=== PATIENT | female | born 1950 | race Caucasian/White ===

== ENCOUNTER 2016-11-26 05:03 | Emergency (ER) | payer MEDICARE ==
[~2016-11-26] VITALS: Ht 162.6 cm; Wt 118.8 kg
[~2016-11-26 05:03] MED LIST: ATOR40TA70 PO; ESCI20TA45 PO; ESCT10T PO; FAMO20TA5 PO; HCTZ12.5T PO; HYDR-3720 PO; LEVO175T5 PO; LVT.15T PO; NFNEB10T PO; OMG1KC PO; ROSU10TA12 PO; VALS1TAB76 PO; VLS80C PO
[2016-11-26] MEDS ORDERED: BENZ100C23 (05:14)
[2016-11-26] MEDS ORDERED: ESCI10TA55 (05:14)
[2016-11-26] MEDS ORDERED: CIPR500T4 (05:14)
[2016-11-26] MEDS ORDERED: LEVO150T6 (05:14)
[2016-11-26] MEDS ORDERED: METO-272 (05:14)
[2016-11-26] MEDS ORDERED: ATOR10TA66 (05:14)
[2016-11-26] MEDS ORDERED: LORA10CA PO (05:16)
[2016-11-26] MEDS ORDERED: D-ME245.3 PO (05:16)
--- NOTE | 2016-11-26 05:29 | ED Cough/URI ---
General Chief Complaint: Cough/Cold/Flu Symptoms Stated Complaint: COLD,SINUS,COUGHING,PAIN IN HEAD,POSS ALLERGIC RXN Nursing Triage Note: patient reports coughing since tuesday, states tuesday went to dr and got medication for cough, antibiotic and steroid shot. reports today developed a headache Source: patient, RN notes reviewed, spouse Exam Limitations: no limitations History of Present Illness Time seen by provider: 05:12 Initial Comments Started coughing on Tuesday. Saw PCP on Tuesday and was given Cipro, steroid shot, and cough medication. Not any better @ this time and has been coughing so hard now has a headache. Also her skin has become red and is burning this AM. States she has never had anything like this before. Timing/Duration: other (started Tuesday) Severity/Quality: severe, dry cough Prior Episodes/Possible Cause: no prior episodes Modifying Factors: Worse With Coughing Associated Symptoms: cough, headache (secondary to coughing) Allergies and Home Medications Allergies Coded Allergies: codeine (Unverified Allergy, Intermediate, LIGHT HEADED/NEAR SYNCOPE, ) Home Medications Atorvastatin Calcium 10 Mg Tablet, #90 (Reported) Benzonatate 100 Mg Capsule, #30 (Reported) Ciprofloxacin HCl 500 Mg Tablet, #14 (Reported) D-Methorphan/PE/Acetaminophen 245.5 Ml Liquid, 245.5 ML PO, (Reported) Escitalopram Oxalate 10 Mg Tablet, #90 (Reported) Levothyroxine Sodium 150 Mcg Tablet, #90 (Reported) Loratadine 10 Mg Capsule, 10 MG PO, (Reported) Metoprolol Succinate 50 Mg Tab.er.24h, #90 (Reported) Constitutional: see HPI Respiratory: see HPI, cough : No Skin: see HPI, rash Psychiatric/Neurological: See HPI, Headache All Other Systems Reviewed Negative Unless Noted: Yes (Negative excepted noted.) Past Mjvgbkk-Dxlvji-Gujtfs Hx Patient Social History Alcohol Use: Denies Use Recreational Drug Use: No Smoking Status: Never a Smoker Recent Foreign Travel: No Contact w/Someone Who Travel: No Recent Infectious Disease Expo: No Recent Hopitalizations: No Immunizations Up To Date Date of Pneumonia Vaccine: Apr 10, 2012 Date of Influenza Vaccine: Apr 10, 2011 Surgeries HX Surgeries: Yes (L TKR, ULNER NERVE REATTATCHMENT LEFT, ) Respiratory Hx Respiratory Disorders: No (SOME SINUS PROBLEMS/COUGH) Cardiovascular Hx Cardiac Disorders: No Neurological Hx Neurological Disorders: No Reproductive System Hx Reproductive Disorders: No Genitourinary Hx Genitourinary Disorders: No Gastrointestinal Hx Gastrointestinal Disorders: No Musculoskeletal Hx Musculoskeletal Disorders: No Endocrine Hx Endocrine Disorders: Yes HEENT HX ENT Disorders: Yes Psychosocial Hx Psychiatric Problems: No Blood Transfusions Hx Blood Disorders: No Physical Exam Vital Signs Vital Sign - Last 12Hours 11/26/16 05:10 Temp 96.0 Pulse 87 Resp 18 B/P (MAP) 177/106 Pulse Ox 98 O2 Delivery Room Air Capillary Refill : Less Than 3 Seconds General Appearance: WD/WN, mild distress, obese HEENT: normal ENT inspection, TMs normal, pharynx normal Neck: normal inspection Respiratory: no respiratory distress, crackles, rhonchi Cardiovascular: regular rate, rhythm Neurologic/Psychiatric: no motor/sensory deficits, alert, oriented x 3, depressed affect Skin: warm/dry, rash Progress/Results/Core Measures Results/Orders Lab Results Laboratory Tests Test 11/26/16 05:20 Range/Units White Blood Count 7.0 4.3-11.0 10^3/uL Red Blood Count 5.03 4.35-5.85 10^6/uL Hemoglobin 14.6 11.5-16.0 G/DL Hematocrit 44 35-52 % Mean Corpuscular Volume 88 80-99 FL Mean Corpuscular Hemoglobin 29 25-34 PG Mean Corpuscular Hemoglobin Concent 33 32-36 G/DL Red Cell Distribution Width 12.6 10.0-14.5 % Platelet Count 233 130-400 10^3/uL Mean Platelet Volume 9.2 7.4-10.4 FL Neutrophils (%) (Auto) 60 42-75 % Lymphocytes (%) (Auto) 28 12-44 % Monocytes (%) (Auto) 10 0-12 % Eosinophils (%) (Auto) 2 0-10 % Basophils (%) (Auto) 0 0-10 % Neutrophils # (Auto) 4.2 1.8-7.8 X 10^3 Lymphocytes # (Auto) 2.0 1.0-4.0 X 10^3 Monocytes # (Auto) 0.7 0.0-1.0 X 10^3 Eosinophils # (Auto) 0.1 0.0-0.3 10^3/uL Basophils # (Auto) 0.0 0.0-0.1 10^3/uL Sodium Level 139 135-145 MMOL/L Potassium Level 3.3 L 3.6-5.0 MMOL/L Chloride Level 102 98-107 MMOL/L Carbon Dioxide Level 24 21-32 MMOL/L Anion Gap 13 5-14 MMOL/L Blood Urea Nitrogen 15 7-18 MG/DL Creatinine 1.08 0.60-1.30 MG/DL Estimat Glomerular Filtration Rate 51 BUN/Creatinine Ratio 14 Glucose Level 122 H 70-105 MG/DL Calcium Level 9.4 8.5-10.1 MG/DL Magnesium Level 2.2 1.8-2.4 MG/DL Total Bilirubin 0.4 0.1-1.0 MG/DL Aspartate Amino Transf (AST/SGOT) 40 H 5-34 U/L Alanine Aminotransferase (ALT/SGPT) 28 0-55 U/L Alkaline Phosphatase 117 40-136 U/L B-Type Natriuretic Peptide 104.0 H <100.0 PG/ML Total Protein 7.5 6.4-8.2 G/DL Albumin 4.3 3.2-4.5 G/DL My Orders Orders - EASTON BATRES DO Saline Lock/Iv-Start (11/26/16 05:18) BNP (11/26/16 05:18) Cbc With Automated Diff (11/26/16 05:18) Comprehensive Metabolic Panel (11/26/16 05:18) Magnesium (11/26/16 05:18) Chest 1 View, Ap/Pa Only (11/26/16 05:18) Dexamethasone Pf Injection (Decadron Pf (11/26/16 05:30) Albuterol/Ipra Inhalation Soln (Duoneb I (11/26/16 05:30) Svn Sm Volume Nebulizer Rt-Rfs (11/26/16 05:21) Ns Iv 1000 Ml (Sodium Chloride 0.9%) (11/26/16 05:30) Medications Given in ED Current Medications Medications Dose Ordered Sig/Ghulam Route Start Time Stop Time Status Last Admin Dose Admin Albuterol/ Ipratropium 3 ml ONCE ONCE INH 11/26/16 05:30 11/26/16 05:31 DC 11/26/16 05:39 3 ML Dexamethasone Sodium Phosphate 10 mg ONCE ONCE IV 11/26/16 05:30 11/26/16 05:31 DC 11/26/16 05:30 10 MG Vital Signs/I&O Vital Sign - Last 12Hours 11/26/16 11/26/16 11/26/16 05:10 05:10 05:40 Temp 96.0 Pulse 87 Resp 18 B/P (MAP) 177/106 Pulse Ox 98 98 O2 Delivery Room Air Blood Pressure Mean: 129 Departure Impression Impression: Primary Impression: Asthmatic bronchitis Disposition: 01 HOME, SELF-CARE Condition: Stable Departure-Patient Inst. Decision time for Depature: 06:29 Referrals: REBEKAH LEVI MD (PCP/Family) Primary Care Physician Patient Instructions: Acute Bronchitis, Adult (DC) Scripts Albuterol Sulfate (PROAIR HFA) 1 Puff Puff 2 PUFF IH Q4H Y for COUGH/SOA, #1 INHALER 0 Refills 1 PUFF = 90 MCG Prov: EASTON BATRES DO 11/26/16 Hydrocodone/Chlorphen P-Stirex (Tussionex Pennkinetic Susp) 115 Ml Sonia.er.12h 5 ML PO Q12H Y for COUGH/PAIN, #120 ML 0 Refills Prov: EASTON BATRES DO 11/26/16 Methylprednisolone (Medrol) 4 Mg Tab.ds.pk 4 MG PO UD, #1 PKG 0 Refills Prov: EASTON BATRES DO 11/26/16 EASTON BATRES DO November 26, 2016 05:29
[2016-11-26] MEDS ORDERED: NS IV 1000 ML 1,000 ML IV SCH (05:30)
[2016-11-26] MEDS ORDERED: RT-ALBUTEROL/IPRATROPIUM 3 ML (DUONEB) VIAL INH ONE (05:30)
[2016-11-26] MEDS ORDERED: DEXAMETHASONE PF 10 MG/ML (DECADRON) VIAL IV ONE (05:30)
[2016-11-26 05:32] LABS: BASOPHILS % (AUTO) 0 % (0-10); EOSINOPHILS # (AUTO) 0.1 10^3/uL (0.0-0.3); EOSINOPHILS % (AUTO) 2 % (0-10); LYMPHOCYTES % (AUTO) 28 % (12-44); MEAN CORPUSCULAR HEMOGLOBIN 29 PG (25-34); MEAN CORPUSCULAR HGB CONC 33 G/DL (32-36); MEAN CORPUSCULAR VOLUME 88 FL (80-99); MEAN PLATELET VOLUME 9.2 FL (7.4-10.4); MONOCYTES # (AUTO) 0.7 X 10^3 (0.0-1.0); MONOCYTES % (AUTO) 10 % (0-12); NEUTROPHILS # (AUTO) 4.2 X 10^3 (1.8-7.8); NEUTROPHILS % (AUTO) 60 % (42-75); PLATELET COUNT 233 10^3/uL (130-400); RED BLOOD COUNT 5.03 10^6/uL (4.35-5.85); RED CELL DISTRIBUTION WIDTH 12.6 % (10.0-14.5)
[2016-11-26 06:10] LABS: ALBUMIN 4.3 G/DL (3.2-4.5); BILIRUBIN,TOTAL 0.4 MG/DL (0.1-1.0); CALCIUM 9.4 MG/DL (8.5-10.1); CREATININE SERUM 1.08 MG/DL (0.60-1.30); MAGNESIUM 2.2 MG/DL (1.8-2.4); POTASSIUM 3.3 MMOL/L (3.6-5.0); TOTAL PROTEIN 7.5 G/DL (6.4-8.2)
--- NOTE | 2016-11-26 06:15 | Diagnostic Imaging Report ---
INDICATION: Cough, congestion, chest wall pain. TECHNIQUE: Single view chest 5:34 AM. CORRELATION STUDY: 07/10/2012 FINDINGS: Given limited depth of inspiration, heart size, mediastinum, and vasculature within normal limits. The lungs are clear with no consolidating infiltrate. There is no significant effusion or pneumothorax. IMPRESSION: 1. Stable negative portable chest. Dictated by: Dictated on workstation # [id number]
[2016-11-26] MEDS ORDERED: fentaNYL INJECTION 100 MCG/2 ML AMP IM ONE (06:30)
[2016-11-26] MEDS ORDERED: RT-ALBUINH IH (06:31)
[2016-11-26] MEDS ORDERED: HYDR115S2 PO (06:31)
[2016-11-26] MEDS ORDERED: METH4TAB PO (06:31)
[2016-11-26 06:48] VITALS: BP 168/96
[2016-11-27] MEDS ORDERED: ATROVENT (09:19)
[2016-11-27] MEDS ORDERED: HYDR-756 PO (09:20)
== END 2016-11-26 06:47 | disposition home or self-care (01) ==
LOC: EDUNIT# 05:03 → ER 05:05
DX: J45.901 Unspecified asthma with (acute) exacerbation (principal)
CPT/HCPCS: 36415; 71010; 80053; 83735; 83880; 85025; 94640; 96361; 96374; 96375

== ENCOUNTER 2016-11-27 07:23 | Emergency (ER) | payer MEDICARE ==
[~2016-11-27] VITALS: Ht 162.6 cm; Wt 113.4 kg
[~2016-11-27 07:23] MED LIST changes: +ATOR10TA66; +BENZ100C23; +CIPR500T4; +D-ME245.3 PO; +ESCI10TA55; +HYDR115S2 PO; +LEVO150T6; +LORA10CA PO; +METH4TAB PO; +METO-272; +RT-ALBUINH IH
[2016-11-27] MEDS ORDERED: RT-ALBUTEROL/IPRATROPIUM 3 ML (DUONEB) VIAL ONE (07:55)
[2016-11-27] MEDS ORDERED: HYDROcodone/APAP 10 MG/325 MG (LORTAB) TAB PO ONE (09:15)
[2016-11-27] MEDS ORDERED: methylPREDNISolone 125 MG (Solu-MEDROL) VIAL IM ONE (09:15)
--- NOTE | 2016-11-27 09:16 | ED Cough/URI ---
General Chief Complaint: Cough/Cold/Flu Symptoms Stated Complaint: BURNING EVERYWHERE, SHARP PAIN IN HEAD Nursing Triage Note: PT WAS SEEN IN ED YESTERDAY, PT STATES COUGH WORSENING, HAS HORRIBLE THURMAN,BURNING ALL OVER. Source: patient, family Exam Limitations: no limitations History of Present Illness Time seen by provider: 09:11 Initial Comments The patient's a 66-year-old white female previously known to me. She was here yesterday with the same complaint. That is to say uncontrolled cough. She reports that she began to have symptoms about Tuesday. By Tuesday she was seen by the nurse practitioner at her provider's office. She was given antibiotics. By evening she was coughing incessantly and felt as if her brain was slamming against her skull. She was seen here yesterday and started on steroids and albuterol inhalation. She is continued to cough harshly. Her cough has not been ameliorated by [id number] cough meds. She was given a Medrol Dosepak. And has not completed the first day's dose. There is been a clear water nasal drainage and a thick or posterior drainage. She also reports hoarseness. There has been a little or no phlegm Timing/Duration: week, getting worse Severity/Quality: severe, dry cough Prior Episodes/Possible Cause: no prior episodes Associated Symptoms: headache, other (sweats) Allergies and Home Medications Allergies Coded Allergies: codeine (Unverified Allergy, Intermediate, LIGHT HEADED/NEAR SYNCOPE, ) Home Medications Albuterol Sulfate 1 Puff Puff, 2 PUFF IH Q4H PRN for COUGH/SOA, #1 Ref 0 1 PUFF = 90 MCG Prescribed by: EASTON BATRES on 11/26/16 0631 Atorvastatin Calcium 10 Mg Tablet, #90 (Reported) Benzonatate 100 Mg Capsule, #30 (Reported) Ciprofloxacin HCl 500 Mg Tablet, #14 (Reported) D-Methorphan/PE/Acetaminophen 245.5 Ml Liquid, 245.5 ML PO, (Reported) Escitalopram Oxalate 10 Mg Tablet, #90 (Reported) Hydrocodone/Chlorphen P-Stirex 115 Ml Sonia.er.12h, 5 ML PO Q12H PRN for COUGH/ PAIN, #120 Ref 0 Prescribed by: EASTON BATRES on 11/26/16 0631 Levothyroxine Sodium 150 Mcg Tablet, #90 (Reported) Loratadine 10 Mg Capsule, 10 MG PO, (Reported) Methylprednisolone 4 Mg Tab.ds.pk, 4 MG PO UD, #1 Ref 0 Prescribed by: EASTON BATRES on 11/26/16 0631 Metoprolol Succinate 50 Mg Tab.er.24h, #90 (Reported) Constitutional: see HPI EENTM: nose congestion, other (nasal and postnasal drips) Respiratory: other (dyspnea with cough) Cardiovascular: no symptoms reported Gastrointestinal: no symptoms reported Genitourinary: no symptoms reported Musculoskeletal: no symptoms reported Skin: no symptoms reported Past Csoabue-Ewzsjo-Lvxhay Hx Patient Social History Alcohol Use: Denies Use Recreational Drug Use: No Smoking Status: Never a Smoker Recent Foreign Travel: No Contact w/Someone Who Travel: No Recent Infectious Disease Expo: No Recent Hopitalizations: No Immunizations Up To Date Date of Pneumonia Vaccine: Apr 10, 2012 Date of Influenza Vaccine: Apr 10, 2011 Surgeries HX Surgeries: Yes (L TKR, ULNER NERVE REATTATCHMENT LEFT, ) Respiratory Hx Respiratory Disorders: No (SOME SINUS PROBLEMS/COUGH) Cardiovascular Hx Cardiac Disorders: No Neurological Hx Neurological Disorders: No Reproductive System Hx Reproductive Disorders: No Genitourinary Hx Genitourinary Disorders: No Gastrointestinal Hx Gastrointestinal Disorders: No Musculoskeletal Hx Musculoskeletal Disorders: No Endocrine Hx Endocrine Disorders: Yes HEENT HX ENT Disorders: Yes Psychosocial Hx Psychiatric Problems: No Blood Transfusions Hx Blood Disorders: No Physical Exam Vital Signs Vital Sign - Last 12Hours 11/27/16 07:25 Temp 98.2 Pulse 102 Resp 18 B/P (MAP) 198/105 Pulse Ox 95 O2 Delivery Room Air Capillary Refill : Less Than 3 Seconds General Appearance: moderate distress Eyes: Bilateral Eye Normal Inspection HEENT: normal ENT inspection Neck: full range of motion Respiratory: chest non-tender, lungs clear, normal breath sounds, no respiratory distress, no accessory muscle use, respiratory distress, other ( harsh barking cough) Cardiovascular: normal peripheral pulses, regular rate, rhythm, no edema, no gallop, no JVD, no murmur Gastrointestinal: normal bowel sounds, non tender, soft, no organomegaly, no pulsatile mass Extremities: normal range of motion, non-tender, normal inspection, no pedal edema, no calf tenderness, normal capillary refill, pelvis stable 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, no motor/sensory deficits, alert, normal mood/affect, oriented x 3 Progress/Results/Core Measures Results/Orders My Orders Orders - VINI HANCOCK MD Albuterol/Ipra Inhalation Soln (Duoneb I (11/27/16 07:55) Methylprednisolone Sod Succ (Solu-Medrol (11/27/16 09:15) Hydrocodone/Apap 10/325 Tablet (Lortab 1 (11/27/16 09:15) Medications Given in ED Current Medications Medications Dose Ordered Sig/Ghulam Route Start Time Stop Time Status Last Admin Dose Admin Albuterol/ Ipratropium 3 ml STK-MED ONCE .ROUTE 11/27/16 07:55 11/27/16 08:00 DC 11/27/16 08:05 3 ML Vital Signs/I&O Vital Sign - Last 12Hours 11/27/16 07:25 Temp 98.2 Pulse 102 Resp 18 B/P (MAP) 198/105 Pulse Ox 95 O2 Delivery Room Air Blood Pressure Mean: 136 Departure Impression Impression: Primary Impression: cyclic coughing Disposition: 01 HOME, SELF-CARE Condition: Stable/Unchanged Departure-Patient Inst. Decision time for Depature: 09:16 Referrals: REBEKAH LEVI MD (PCP/Family) Primary Care Physician Patient Instructions: Cough, Adult (DC) Add. Discharge Instructions: All discharge instructions reviewed with patient and/or family. Voiced understanding. Use throat lozenges as needed. Complete your Medrol Dosepak Add Lortabs for control of cough Use Atrovent nasal spray for control of nasal congestion and drip Scripts Hydrocodone/Acetaminophen ([place] 7.5-325 Tablet) 1 Each Tablet 1 EACH PO every 4 hours Y for cough, #30 TAB Prov: VINI HANCOCK MD 11/27/16 [Atrovent nasal] No Conflict Check 1 twice a day Y for nasal drip, #1 Prov: VINI HANCOCK MD 11/27/16 VINI HANCOCK MD November 27, 2016 09:16
[2016-11-27] MEDS ORDERED: ATROVENT (09:19)
[2016-11-27] MEDS ORDERED: HYDR-756 PO (09:20)
[2016-11-27 09:29] VITALS: BP 158/88
== END 2016-11-27 09:29 | disposition home or self-care (01) ==
LOC: EDUNIT# 07:23 → ER 07:24
DX: R05 Cough (principal); R09.81 Nasal congestion; Z79.899 Other long term (current) drug therapy
CPT/HCPCS: 96372; 99282

== ENCOUNTER 2016-11-30 06:13 | Emergency (ER) | payer MEDICARE ==
[~2016-11-30] VITALS: Ht 162.6 cm; Wt 116.1 kg
[~2016-11-30 06:13] MED LIST changes: +ATROVENT; +HYDR-756 PO
[2016-11-30 06:32] VITALS: BP 172/103
--- NOTE | 2016-11-30 07:52 | ED Cardiac General ---
History of Present Illness General Chief Complaint: Cardiac/General Problems Stated Complaint: HIGH BLOOD PRESSURE Nursing Triage Note: C/O HIGH BLOOD PRESSURE THIS AM. Source: patient Exam Limitations: no limitations History of Present Illness Time seen by provider: 06:45 Initial Comments here with report of high blood pressure and cough. She has been treated for her cough over the last 4 days and is currently on Medrol Dosepak. She states she just does not feel right and side. Her is concerned she is having a heart attack. Also concerned because her blood pressure was very high this morning in the range of 170s over 100. She is on blood pressure medicine. She did take her medicine dose this morning after noticing her blood pressure problems. Denies specific chest pain just states feels weird and side. Denies nausea or vomiting. Does have cough and congestion that have been persistent. She has 2 previous visits in the last 4 days for the same with relation to her complaint of cough. She states her cough is better while taking the steroids. Timing/Duration: changing over time, 4-5 days Severity: moderate Location: central Activities at Onset: none Prior CP/Workup: cardiac cath, echocardiography NTG SL CHIEF DEPUTY CLERK/BAILIFF: No ASA po CHIEF DEPUTY CLERK/BAILIFF: No Associated Systoms: No Chest Pain, Cough, No Fever/Chills, No Nausea/Vomiting, Shortness of Air, No Weakness Allergies and Home Medications Allergies Coded Allergies: codeine (Unverified Allergy, Intermediate, LIGHT HEADED/NEAR SYNCOPE, ) Home Medications Albuterol Sulfate 1 Puff Puff, 2 PUFF IH Q4H PRN for COUGH/SOA, #1 Ref 0 1 PUFF = 90 MCG Prescribed by: EASTON BATRES on 11/26/16 0631 Atorvastatin Calcium 10 Mg Tablet, #90 (Reported) Benzonatate 100 Mg Capsule, #30 (Reported) Ciprofloxacin HCl 500 Mg Tablet, #14 (Reported) D-Methorphan/PE/Acetaminophen 245.5 Ml Liquid, 245.5 ML PO, (Reported) Escitalopram Oxalate 10 Mg Tablet, #90 (Reported) Hydrocodone/Acetaminophen 1 Each Tablet, 1 EACH PO every 4 hours PRN for cough, #30 Prescribed by: VINI HANCOCK on 11/27/16 0920 Hydrocodone/Chlorphen P-Stirex 115 Ml Sonia.er.12h, 5 ML PO Q12H PRN for COUGH/ PAIN, #120 Ref 0 Prescribed by: EASTON BATRES on 11/26/16 0631 Levothyroxine Sodium 150 Mcg Tablet, #90 (Reported) Loratadine 10 Mg Capsule, 10 MG PO, (Reported) Methylprednisolone 4 Mg Tab.ds.pk, 4 MG PO UD, #1 Ref 0 Prescribed by: AESTON BATRES on 11/26/16 0631 Metoprolol Succinate 50 Mg Tab.er.24h, #90 (Reported) [Atrovent nasal] , 1 twice a day PRN for nasal drip, #1 Prescribed by: VINI HANCOCK on 11/27/16 0919 Review of Systems Constitutional: see HPI, No chills, No fever EENTM: Nose Congestion, Throat Pain Respiratory: Cough, Shortness of Air Cardiovascular: Denies Chest Pain, Denies Edema, Lightheadedness Gastrointestinal: Denies Nausea, Denies Vomiting Genitourinary: No Symptoms Reported Musculoskeletal: no symptoms reported Skin: no symptoms reported All Other Systems Reviewed Negative Unless Noted: Yes Past Yzlicei-Zldkhz-Dhoejr Hx Patient Social History Alcohol Use: Denies Use Recreational Drug Use: No Smoking Status: Never a Smoker Recent Foreign Travel: No Contact w/Someone Who Travel: No Recent Infectious Disease Expo: No Recent Hopitalizations: No Immunizations Up To Date Date of Pneumonia Vaccine: Apr 10, 2012 Date of Influenza Vaccine: Apr 10, 2011 Seasonal Allergies Seasonal Allergies: Yes Surgeries HX Surgeries: Yes (L TKR, ULNER NERVE REATTATCHMENT LEFT, ) Respiratory Hx Respiratory Disorders: No (SOME SINUS PROBLEMS/COUGH) Cardiovascular Hx Cardiac Disorders: No Cardiac Disorders: High Cholesterol, Hypertension Neurological Hx Neurological Disorders: No Reproductive System Hx Reproductive Disorders: No Genitourinary Hx Genitourinary Disorders: No Gastrointestinal Hx Gastrointestinal Disorders: No Musculoskeletal Hx Musculoskeletal Disorders: No Endocrine Hx Endocrine Disorders: Yes Endocrine Disorders: Hypothyroidsim HEENT HX ENT Disorders: Yes Psychosocial Hx Psychiatric Problems: No Blood Transfusions Hx Blood Disorders: No Reviewed Nursing Assessment Reviewed/Agree w Nursing PMH: Yes Family Medical History Significant Family History: No Pertinent Family Hx Physical Exam Vital Signs Vital Sign - Last 12Hours 11/30/16 06:27 Temp 98.2 Pulse 88 Resp 18 B/P (MAP) 183/118 Pulse Ox 98 O2 Delivery Room Air Capillary Refill : Less Than 3 Seconds General Appearance: WD/WN, Anxious HEENT: PERRL/EOMI, Pharynx Normal Neck: Non Tender, Supple Respiratory: Lungs Clear, Normal Breath Sounds, Other (course cough) Cardiovascular: Regular Rate, Rhythm, No Murmur, Normal Peripheral Pulses Gastrointestinal: Non Tender, Soft Extremity: Normal Range of Motion, Non Tender Neurologic/Psychiatric: Alert, Oriented x3 Skin: Normal Color, Warm/Dry Progress/Results/Core Measures Results/Orders Lab Results Laboratory Tests Test 11/30/16 07:44 Range/Units White Blood Count 9.1 4.3-11.0 10^3/uL Red Blood Count 5.21 4.35-5.85 10^6/uL Hemoglobin 15.3 11.5-16.0 G/DL Hematocrit 45 35-52 % Mean Corpuscular Volume 86 80-99 FL Mean Corpuscular Hemoglobin 29 25-34 PG Mean Corpuscular Hemoglobin Concent 34 32-36 G/DL Red Cell Distribution Width 12.3 10.0-14.5 % Platelet Count 258 130-400 10^3/uL Mean Platelet Volume 8.9 7.4-10.4 FL Neutrophils (%) (Auto) 61 42-75 % Lymphocytes (%) (Auto) 32 12-44 % Monocytes (%) (Auto) 7 0-12 % Eosinophils (%) (Auto) 0 0-10 % Basophils (%) (Auto) 0 0-10 % Neutrophils # (Auto) 5.6 1.8-7.8 X 10^3 Lymphocytes # (Auto) 3.0 1.0-4.0 X 10^3 Monocytes # (Auto) 0.6 0.0-1.0 X 10^3 Eosinophils # (Auto) 0.0 0.0-0.3 10^3/uL Basophils # (Auto) 0.0 0.0-0.1 10^3/uL Sodium Level 140 135-145 MMOL/L Potassium Level 3.5 L 3.6-5.0 MMOL/L Chloride Level 101 98-107 MMOL/L Carbon Dioxide Level 29 21-32 MMOL/L Anion Gap 10 5-14 MMOL/L Blood Urea Nitrogen 18 7-18 MG/DL Creatinine 1.05 0.60-1.30 MG/DL Estimat Glomerular Filtration Rate 53 BUN/Creatinine Ratio 17 Glucose Level 96 70-105 MG/DL Calcium Level 9.3 8.5-10.1 MG/DL Total Bilirubin 0.5 0.1-1.0 MG/DL Aspartate Amino Transf (AST/SGOT) 22 5-34 U/L Alanine Aminotransferase (ALT/SGPT) 30 0-55 U/L Alkaline Phosphatase 94 40-136 U/L Troponin I < 0.30 <0.30 NG/ML C-Reactive Protein High Sensitivity 0.08 0.00-0.50 MG/DL Total Protein 7.1 6.4-8.2 G/DL Albumin 3.8 3.2-4.5 G/DL My Orders Orders - TIFFANY VERNON MD Ekg Tracing (11/30/16 07:00) Monitor-Rhythm Ecg Trace Only (11/30/16 07:00) Cbc With Automated Diff (11/30/16 07:00) Comprehensive Metabolic Panel (11/30/16 07:00) Hs C Reactive Protein (11/30/16 07:00) Troponin I (11/30/16 07:00) Chest Pa/Lat (2 View) (11/30/16 07:00) Saline Lock/Iv-Start (11/30/16 07:00) Vital Signs/I&O Vital Sign - Last 12Hours 11/30/16 11/30/16 11/30/16 06:27 06:32 08:06 Temp 98.2 Pulse 88 60 Resp 18 18 B/P (MAP) 183/118 172/103 148/82 Pulse Ox 98 95 O2 Delivery Room Air Room Air Blood Pressure Mean: 126 Progress Note : Progress Note Seen and evaluated. IV, labs, EKG and chest x-ray. Monitor patient. 0825: No acute findings on any of the evaluation. Blood pressure currently 159/76. She does have appointment with her Dr. coombs at 140. Copy of chart to Dr. Levi. DC home with return precautions. Patient and family verbalize understanding instructions and agreement with plan. ECG Initial ECG Impression Date: November 30, 2016 Initial ECG Impression Time: 07:32 Initial ECG Rate: 62 Initial ECG Rhythm: Normal Sinus Comment Sinus rhythm with left ventricular hypertrophy. Normal axis. No evidence of ST elevation TX. Overall similar to previous of 08/14/11. Interpreted by me. Diagnostic Imaging Diagonstic Imaging: Xray Plain Films/CT/US/NM/MRI: chest Comments VIA [facility] [place], [place] NAME: ISABELLE STRICKLAND [facility] REC#: [id number] PT STATUS: REG ER : 1950 PHYSICIAN: TIFFANY VERNON MD ADMIT DATE: 11/30/16/ER Draft Date of Exam:11/30/16 CHEST PA/LAT (2 VIEW) PA and lateral views of the chest. INDICATION: Shortness of breath. COMPARISON: 11/26/2016. FINDINGS: There is mild elevation of the left hemidiaphragm similar to 11/26/2016. The lungs are clear. The heart size is normal. No effusion or pneumothorax. Mediastinum and ana appear unremarkable. IMPRESSION: Mild elevation of the left hemidiaphragm. No acute process. Dictated on workstation # [id number] Dict: 11/30/16 0802 Trans: 11/30/16 0806 CINDY [id number] Interpreted by: CIHNA BARR MD Electronically signed by: Departure Impression Impression: Primary Impression: Bronchitis Additional Impression: Steroid side effects Qualified Codes: T38.0X5A - Adverse effect of glucocorticoids and synthetic analogues, initial encounter Disposition: 01 HOME, SELF-CARE Condition: Improved Departure-Patient Inst. Decision time for Depature: 08:32 Referrals: REBEKAH LEVI MD (PCP/Family) Primary Care Physician Add. Discharge Instructions: All discharge instructions reviewed with patient and/or family. Voiced understanding. Keep appointment with your doctor today. Continue medications as prescribed. Discussed with your doctor regarding her blood pressure. Return for worse pain , fever, vomiting, weakness, breathing problems or other concerns as needed. Copy Copies To 1: REBEKAH LEVI MD, TIMOTHY D MD November 30, 2016 07:52
[2016-11-30 07:53] LABS: BASOPHILS % (AUTO) 0 % (0-10); EOSINOPHILS % (AUTO) 0 % (0-10); LYMPHOCYTES % (AUTO) 32 % (12-44); MEAN CORPUSCULAR HEMOGLOBIN 29 PG (25-34); MEAN CORPUSCULAR HGB CONC 34 G/DL (32-36); MEAN CORPUSCULAR VOLUME 86 FL (80-99); MEAN PLATELET VOLUME 8.9 FL (7.4-10.4); MONOCYTES # (AUTO) 0.6 X 10^3 (0.0-1.0); MONOCYTES % (AUTO) 7 % (0-12); NEUTROPHILS # (AUTO) 5.6 X 10^3 (1.8-7.8); NEUTROPHILS % (AUTO) 61 % (42-75); PLATELET COUNT 258 10^3/uL (130-400); RED BLOOD COUNT 5.21 10^6/uL (4.35-5.85); RED CELL DISTRIBUTION WIDTH 12.3 % (10.0-14.5); WHITE BLOOD COUNT 9.1 10^3/uL (4.3-11.0)
[2016-11-30 08:06] VITALS: BP 148/82
--- NOTE | 2016-11-30 08:06 | Diagnostic Imaging Report ---
PA and lateral views of the chest. INDICATION: Shortness of breath. COMPARISON: 11/26/2016. FINDINGS: There is mild elevation of the left hemidiaphragm similar to 11/26/2016. The lungs are clear. The heart size is normal. No effusion or pneumothorax. Mediastinum and ana appear unremarkable. IMPRESSION: Mild elevation of the left hemidiaphragm. No acute process. Dictated by: Dictated on workstation # [id number]
[2016-11-30 08:08] LABS: ALANINE AMINOTRANSFERASE 30 U/L (0-55); ALBUMIN 3.8 G/DL (3.2-4.5); ANION GAP 10 MMOL/L (5-14); ASPARTATE AMINO TRANSFERASE 22 U/L (5-34); BILIRUBIN,TOTAL 0.5 MG/DL (0.1-1.0); BLOOD UREA NITROGEN 18 MG/DL (7-18); BUN/CREATININE RATIO 17; CALCIUM 9.3 MG/DL (8.5-10.1); CARBON DIOXIDE 29 MMOL/L (21-32); CHLORIDE 101 MMOL/L (98-107); CREATININE SERUM 1.05 MG/DL (0.60-1.30); GFR ESTIMATED 53; GLUCOSE 96 MG/DL (70-105); POTASSIUM 3.5 MMOL/L (3.6-5.0); SODIUM 140 MMOL/L (135-145); TOTAL PROTEIN 7.1 G/DL (6.4-8.2); hs C REACTIVE PROTEIN 0.08 MG/DL (0.00-0.50)
[2016-11-30 08:15] LABS: TROPONIN I < 0.30 NG/ML (<0.30)
[2016-11-30 08:45] VITALS: BP 163/86
== END 2016-11-30 08:46 | disposition home or self-care (01) ==
LOC: EDUNIT# 06:13 → ER 06:15
DX: J40 Bronchitis, not specified as acute or chronic (principal); T38.0X5A Adverse effect of glucocorticoids and synthetic analogues, initial encounter; I10 Essential (primary) hypertension; Z79.899 Other long term (current) drug therapy
CPT/HCPCS: 36415; 71020; 80053; 84484; 85025; 86141; 93005; 93041

== ENCOUNTER → 2017-05-03 | Outpatient (CLI) | payer MEDICARE ==
--- NOTE | 2017-05-04 14:21 | Diagnostic Imaging Report ---
Bilateral screening mammogram 2D views with tomosynthesis The current study was also evaluated with a Computer Aided Detection (CAD) system. INDICATION: Screening. No current complaints stated on the questionnaire. COMPARISON: 10/28/2015. FINDINGS: The breasts are composed of heterogeneously dense parenchyma which may decrease mammographic sensitivity. Benign-appearing calcifications are seen. Allowing for technique and positional differences, no suspicious change is seen. IMPRESSION: No significant change. ACR BI-RADS Category 2: Benign findings. Result letter will be mailed to the patient. Note: At least 10% of breast cancer is not imaged by mammography. Dictated by: Dictated on workstation # [id number]
== END ==
LOC: RAD 09:38
PROVIDERS: ATTEND Nurse Practitioner Family
DX: Z12.31 Encounter for screening mammogram for malignant neoplasm of breast (principal)
CPT/HCPCS: 77067

== ENCOUNTER → 2019-03-22 | Outpatient (CLI) | payer MEDICARE ==
[~2019-03-22] MED LIST changes: +BENZ-36; -BENZ100C23; +HYDR-4227 PO; -HYDR-756 PO; -METO-272; +METO-370
[2019-03-22 14:22] LABS: BASOPHILS % (AUTO) 0 % (0-10); EOSINOPHILS # (AUTO) 0.1 10^3/uL (0.0-0.3); EOSINOPHILS % (AUTO) 1 % (0-10); HEMATOCRIT 44 % (35-52); HEMOGLOBIN 14.7 G/DL (11.5-16.0); LYMPHOCYTES # (AUTO) 2.1 X 10^3 (1.0-4.0); LYMPHOCYTES % (AUTO) 26 % (12-44); MEAN CORPUSCULAR HEMOGLOBIN 29 PG (25-34); MEAN CORPUSCULAR HGB CONC 33 G/DL (32-36); MEAN CORPUSCULAR VOLUME 88 FL (80-99); MEAN PLATELET VOLUME 8.6 FL (7.4-10.4); MONOCYTES # (AUTO) 0.5 X 10^3 (0.0-1.0); MONOCYTES % (AUTO) 6 % (0-12); NEUTROPHILS # (AUTO) 5.2 X 10^3 (1.8-7.8); NEUTROPHILS % (AUTO) 66 % (42-75); PLATELET COUNT 290 10^3/uL (130-400); RED CELL DISTRIBUTION WIDTH 12.6 % (10.0-14.5); WHITE BLOOD COUNT 7.9 10^3/uL (4.3-11.0)
[2019-03-22 14:40] LABS: ALANINE AMINOTRANSFERASE 19 U/L (0-55); ALBUMIN 4.3 GM/DL (3.2-4.5); ALKALINE PHOSPHATASE 112 U/L (40-136); BILIRUBIN,TOTAL 0.4 MG/DL (0.1-1.0); BUN/CREATININE RATIO 17; CALCIUM 9.9 MG/DL (8.5-10.1); CARBON DIOXIDE 32 MMOL/L (21-32); CHLORIDE 103 MMOL/L (98-107); CREATININE SERUM 1.23 MG/DL (0.60-1.30); GFR ESTIMATED 44; GLUCOSE 88 MG/DL (70-105); POTASSIUM 4.6 MMOL/L (3.6-5.0); SODIUM 138 MMOL/L (135-145); TOTAL PROTEIN 7.6 GM/DL (6.4-8.2)
== END ==
LOC: CARD 14:06
PROVIDERS: ATTEND Nurse Practitioner Family
DX: M25.512 Pain in left shoulder (principal); R68.84 Jaw pain; R07.89 Other chest pain
CPT/HCPCS: 36415; 80053; 84484; 85025; 93005

== ENCOUNTER → 2019-04-27 | Outpatient (CLI) | payer MEDICARE ==
[~2019-04-27] MED LIST changes: -METO-370; +METO50TA7
--- NOTE | 2019-04-27 13:00 | Diagnostic Imaging Report ---
INDICATION: Routine screening. COMPARISON: Comparison is made with prior mammogram from 05/03/2017 and 10/28/2015. 2-D and 3-D bilateral screening mammography was performed. The current study was also evaluated with a Computer Aided Detection (CAD) system. 3-D tomosynthesis was also performed and reviewed. FINDINGS: Scattered fibroglandular densities are identified bilaterally. A benign parenchymal and vascular calcifications are again noted. No spiculated mass or malignant-appearing microcalcifications are seen. Axillae are unremarkable. IMPRESSION: No mammographic features suspicious for malignancy are identified. ACR BI-RADS Category 2: Benign findings. Result letter will be mailed to the patient. Note: At least 10% of breast cancer is not imaged by mammography. Dictated by: Dictated on workstation # [id number]
== END ==
LOC: RAD 08:06
PROVIDERS: ATTEND Nurse Practitioner Family
DX: Z12.31 Encounter for screening mammogram for malignant neoplasm of breast (principal)
CPT/HCPCS: 77067

== ENCOUNTER → 2019-06-19 | Outpatient (CLI) | payer MEDICARE ==
[~2019-06-19] MED LIST changes: +METO-370; -METO50TA7
--- NOTE | 2019-06-19 09:41 | Diagnostic Imaging Report ---
PROCEDURE: US Renal Bilateral. TECHNIQUE: Multiple real-time grayscale images were obtained over the kidneys in various projections bilaterally. INDICATION: Chronic kidney disease. FINDINGS: Right kidney measures 9.1 x 4.4 x 5.6 cm and the left kidney measures 10.7 x 5 x 4.6 cm. Both kidneys demonstrate normal renal cortical thickness and echogenicity. There is no hydronephrosis, calculi or mass. Both ureteral jets are visualized in the bladder. Bladder is normal in appearance. IMPRESSION: Unremarkable sonographic appearance of both kidneys. Dictated by: Dictated on workstation # [id number]
== END ==
LOC: RAD 08:42
PROVIDERS: ATTEND Internal Medicine Nephrology
DX: N18.3 Chronic kidney disease, stage 3 (moderate) (principal)
CPT/HCPCS: 76770

== ENCOUNTER → 2019-06-22 | Outpatient (CLI) | payer MEDICARE ==
--- NOTE | 2019-06-22 15:09 | Diagnostic Imaging Report ---
INDICATION: Cough for approximately one month with worsening of shortness of air on exertion. TECHNIQUE: Single-view chest 3:03 p.m. CORRELATION STUDY: 11/30/2016. FINDINGS: The heart size, mediastinal configuration and pulmonary vascularity are within normal limits. Minimal atelectasis and/or scarring in the left lung base. No consolidating infiltrate. IMPRESSION: 1. Negative for acute abnormality of the chest. Dictated by: Dictated on workstation # [id number]
== END ==
LOC: RAD 14:16
PROVIDERS: ATTEND Nurse Practitioner Family
DX: R06.02 Shortness of breath (principal); R05 Cough
CPT/HCPCS: 71045

== ENCOUNTER → 2020-03-18 | Outpatient (CLI) | payer MEDICARE ==
[~2020-03-18] MED LIST changes: -METO-370; +METO50TA7
[2020-03-18 15:53] LABS: BASOPHILS % (AUTO) 1 % (0-10); EOSINOPHILS # (AUTO) 0.2 10^3/uL (0.0-0.3); EOSINOPHILS % (AUTO) 4 % (0-10); HEMATOCRIT 43 % (35-52); HEMOGLOBIN 13.8 G/DL (11.5-16.0); LYMPHOCYTES # (AUTO) 2.1 X 10^3 (1.0-4.0); LYMPHOCYTES % (AUTO) 32 % (12-44); MEAN CORPUSCULAR HEMOGLOBIN 29 PG (25-34); MEAN CORPUSCULAR HGB CONC 33 G/DL (32-36); MEAN CORPUSCULAR VOLUME 90 FL (80-99); MEAN PLATELET VOLUME 8.8 FL (7.4-10.4); MONOCYTES # (AUTO) 0.4 X 10^3 (0.0-1.0); MONOCYTES % (AUTO) 6 % (0-12); NEUTROPHILS # (AUTO) 3.8 X 10^3 (1.8-7.8); NEUTROPHILS % (AUTO) 58 % (42-75); PLATELET COUNT 248 10^3/uL (130-400); WHITE BLOOD COUNT 6.5 10^3/uL (4.3-11.0)
[2020-03-18 16:10] LABS: ALANINE AMINOTRANSFERASE 14 U/L (0-55); ALBUMIN 4.1 GM/DL (3.2-4.5); ALKALINE PHOSPHATASE 102 U/L (40-136); BILIRUBIN,TOTAL 0.3 MG/DL (0.1-1.0); BUN/CREATININE RATIO 11; CALCIUM 9.1 MG/DL (8.5-10.1); CARBON DIOXIDE 27 MMOL/L (21-32); CHLORIDE 106 MMOL/L (98-107); CREATININE SERUM 1.31 MG/DL (0.60-1.30); GFR ESTIMATED 40; GLUCOSE 98 MG/DL (70-105); SODIUM 140 MMOL/L (135-145); TOTAL PROTEIN 7.1 GM/DL (6.4-8.2)
[2020-03-18 16:33] LABS: FREE T4 (FREE THYROXINE) 1.31 NG/DL (0.70-1.48)
== END ==
LOC: CARD 15:24
PROVIDERS: ATTEND Nurse Practitioner Family
DX: E03.9 Hypothyroidism, unspecified (principal); R07.9 Chest pain, unspecified; R06.09 Other forms of dyspnea; R00.0 Tachycardia, unspecified
CPT/HCPCS: 36415; 80053; 84439; 84443; 84484; 85025; 93005

== ENCOUNTER → 2020-04-17 | Outpatient (CLI) | payer MEDICARE | LOC: CARD 09:00 | PROVIDERS: ATTEND Internal Medicine Cardiovascular Disease | DX: I10 Essential (primary) hypertension (principal); E78.49 Other hyperlipidemia; R06.02 Shortness of breath; R07.89 Other chest pain | CPT/HCPCS: 93306 ==

== ENCOUNTER → 2020-04-18 | Outpatient (CLI) | payer MEDICARE ==
[~2020-04-18] VITALS: Ht 162 cm; Wt 119.0 kg
[~2020-04-18] MED LIST changes: +CATHETER FLUSH 10 ML SYR IV PRN; +REGADENOSON 0.4 MG/5 ML SYR (LEXISCAN) IV ONE
--- NOTE | 2020-04-18 19:12 | STRESS TEST ---
DATE OF SERVICE: 04/18/2020 RESTING AND POST REGADENOSON TECHNETIUM-99M TETROFOSMIN SPECT CT IMAGING ORDERING PHYSICIAN: Dr. Jimenez. PRIMARY PHYSICIAN: Dr. Dolan. CLINICAL DIAGNOSIS: Chest discomfort. Baseline images were carried out after injection of 10.34 mCi of technetium-99m Tetrofosmin. This was followed by 0.4 mg regadenoson and 29.6 mCi of technetium-99m Tetrofosmin for stress imaging. The patient noted some chest heaviness and shortness of breath, which resolved in a few minutes. Review of images at rest and following stress does not indicate any significant perfusion defects consistent with myocardial ischemia or infarction. Gated images show normal global left ventricular systolic function with normal regional wall motion. Left ventricular ejection fraction is calculated to be 76%. Left ventricular end diastolic volume is 30 mL. TID is absent (0.84). CONCLUSIONS: 1. No evidence of any significant myocardial ischemia or infarction on this study. 2. Normal regional wall motion. 3. Normal global left ventricular systolic function with a calculated ejection fraction of 76%. Job ID: [id number] DocumentID: [id number] Dictated Date: 04/18/2020 13:36:04 Log Carrier Operator Date: 04/18/2020 19:12:02 Dictated By: GEOVANNI JIMENEZ MD, MA, FACP, FACC,
== END ==
LOC: CARD 07:49
PROVIDERS: ATTEND Internal Medicine Cardiovascular Disease
DX: R07.89 Other chest pain (principal); I10 Essential (primary) hypertension; E78.49 Other hyperlipidemia; R06.02 Shortness of breath
CPT/HCPCS: 78452; 93017; A9502

== ENCOUNTER → 2020-04-29 | Outpatient (CLI) | payer MEDICARE ==
[~2020-04-29] MED LIST changes: -CATHETER FLUSH 10 ML SYR IV PRN; -REGADENOSON 0.4 MG/5 ML SYR (LEXISCAN) IV ONE
--- NOTE | 2020-04-29 19:50 | Diagnostic Imaging Report ---
EXAM: Digital mammogram bilateral screening. 3D digital tomography, bilateral. COMPARISON: This study was compared to the prior exams of 04/27/2019, 05/03/2017 and 10/28/2015. There are no current complaints. HISTORY: Routine screening TECHNIQUE: Bilateral 3d digital tomographic views were obtained with [employer] and reviewed on a [employer] workstation. In addition, CAD - computer aided detection was utilized. COMPARISON: None. FINDINGS: Breast Tissue Density B : The breast tissue is composed of mixed fatty and fibroglandular tissue. There are no suspicious masses, microcalcifications or areas of architectural distortion. IMPRESSION: No suspicious findings. BI-RADS Category 1: Negative. Normal interval followup. The patient will receive a letter with the results in the mail. A mammogram does not have 100% sensitivity and therefore a negative imaging study should not delay further work up of a suspicious abnormality. Patient information is entered into the [facility] reminder system using [employer] with a target due date for the next screening mammogram. The patient will receive a reminder. "Our facility is accredited by the [employer] Mammography Program." ACR BI-RADS Category 1: Negative. Result letter will be mailed to the patient. Note: At least 10% of breast cancer is not imaged by mammography. Dictated on workstation # [id number]
== END ==
LOC: RAD 10:00
PROVIDERS: ATTEND Nurse Practitioner Family
DX: Z12.31 Encounter for screening mammogram for malignant neoplasm of breast (principal)
CPT/HCPCS: 77063; 77067

== ENCOUNTER 2020-09-06 19:34 | Emergency (ER) | payer MEDICARE ==
[2020-09-06 19:34] VITALS: BP 154/83
[~2020-09-06 19:34] MED LIST changes: -CIPR500T4; +CIPR500T5; +ESCI-2; -ESCI10TA55; +ESCI20TA39 PO; -ESCI20TA45 PO
--- NOTE | 2020-09-06 19:41 | ED GI ---
General Stated Complaint: CONSTIPATION Source of Information: Patient History of Present Illness Date Seen by Provider: Sep 06, 2020 Time Seen by Provider: 19:34 Initial Comments PT ARRIVES VIA EMS FROM HOME PT CALLED EMS WHILE SHE WAS STILL SITTING ON THE TOILET C/O CONSTIPATION STATES SHE HAD A BM YESTERDAY BUT IS WAS VERY HARD, SMALL MAJO TONIGHT, SHE HAD EATEN DINNER, AND THEN HAD URGE TO HAVE A BM STATES SHE HAS BEEN TRYING TO HAVE A BM SINCE 1800 TONIGHT, BUT CANNOT--TOOK 2 "STOOL SOFTENERS" AT 1800 AND IT HAS NOT HELPED HAS NOT TRIED ENEMAS, SUPPOSITORIES OR ATTEMPTED MANUAL DIS-IMPACTION. C/O RECTAL PAIN DUE TO STRAINING AND ALOT OF PRESSURE IN RECTUM NO BLEEDING NO ABDOMINAL PAIN OR CRAMPING HAS HAD A LITTLE NAUSEA, NO VOMITING. STATES SHE HAS RECENTLY STARTED ON A WEIGHT LOSS DIET IN THE LAST 2 MONTHS--ON HER OWN, HAS NOT DISCUSSED WITH DR. RING. STATES SHE HAS BEEN EATING BASICALLY ONLY PROTEIN--MEAT, COTTAGE CHEESE, CHEESE, ETC. AND HAS NOT BEEN EATING ANY FRUITS OR VEGETABLES OF ANY KIND. DENIES PRIOR HISTORY OF CONSTIPATION Allergies and Home Medications Allergies Coded Allergies: codeine (Unverified Allergy, Intermediate, LIGHT HEADED/NEAR SYNCOPE, 11/13/15) Home Medications Albuterol Sulfate 1 Puff Puff, 2 PUFF IH Q4H PRN for COUGH/SOA 1 PUFF = 90 MCG Prescribed by: EASTON BATRES on 11/26/16630 Hydrocodone/Acetaminophen 1 Each Tablet, 1 EACH PO every 4 hours PRN for cough Prescribed by: VINI HANCOCK on 11/27/16919 Hydrocodone/Chlorphen P-Stirex 115 Ml Snoia.er.12h, 5 ML PO Q12H PRN for COUGH/PAIN Prescribed by: EASTON BATRES on 11/26/16630 Methylprednisolone 4 Mg Tab.ds.pk, 4 MG PO UD Prescribed by: EASTON BATRES on 11/26/16630 [Atrovent nasal] , 1 twice a day PRN for nasal drip Prescribed by: VINI HANCOCK on 11/27/16918 Patient Home Medication List Home Medication List Reviewed: Yes Review of Systems Review of Systems Constitutional: no symptoms reported Respiratory: No Symptoms Reported Cardiovascular: No Symptoms Reported Gastrointestinal: See HPI; Denies Abdominal Pain; Constipated, Nausea; Denies Rectal Bleeding Past Dpqszsd-Wwerqd-Oxnhne Hx Past Med/Social Hx: Reviewed and Corrections made Patient Social History Alcohol Use: Denies Use Smoking Status: Never a Smoker Recent Hopitalizations: No Immunizations Up To Date Date of Pneumonia Vaccine: Apr 10, 2012 Date of Influenza Vaccine: Apr 10, 2011 Seasonal Allergies Seasonal Allergies: Yes Past Medical History Surgeries: Yes (BILATERAL KNEE REPLACEMENT;LEFT ULNAR NERVE SURGERY;HYST--OVARIES INTACT) Adenoidectomy, Appendectomy, Gallbladder, Hysterectomy, Joint Replacement, Orthopedic, Tonsillectomy Respiratory: No Cardiac: Yes High Cholesterol, Hypertension Neurological: No Reproductive Disorders: No Genitourinary: No Gastrointestinal: Yes (S/P HAYDEN AND APPY) Gall Bladder Disease Musculoskeletal: No Endocrine: Yes (OBESITY) Hypothyroidsim HEENT: No Cancer: No Psychosocial: Yes Anxiety Integumentary: No Blood Disorders: No Family Medical History No Pertinent Family Hx Physical Exam Vital Signs Vital Signs - First Documented 09/06/20 19:34 Temp 36.5 Pulse 93 Resp 16 B/P (MAP) 154/83 (106) O2 Delivery Room Air Capillary Refill : Height/Weight/BMI Height: 5'4.00" Weight: 256lbs. 0.0oz. 116.856451wy; 45.34 BMI Method:Stated General Appearance: WD/WN, no apparent distress, obese, other (ANXIOUS) Respiratory: normal breath sounds, no respiratory distress, no accessory muscle use Cardiovascular: regular rate, rhythm, no murmur Gastrointestinal: normal bowel sounds, non tender, soft Rectal: normal rectal tone; No blood streaked stool, No hemorrhoids; tenderness, other (LARGE, HARD STOOL IN RECTUM. ) Extremities: normal inspection, no pedal edema Back: normal inspection, no CVA tenderness Neurologic/Psychiatric: tribal judge II-XII nml as tested, no motor/sensory deficits, alert, oriented x 3 Skin: normal color, warm/dry Progress/Results/Core Measures Results/Orders My Orders Orders - FARNAZ ROSE DO Acute Abd Series (09/06/20 19:38) Bisacodyl Suppository (Dulcolax Supposit (09/06/20 20:15) Na Phos/Na Biphos Enema (Fleet Enema Miguel (09/06/20 20:15) Lidocaine 2% (Urojet) (Xylocaine Urojet) (09/06/20 20:15) Magnesium Citrate Oral Soln (Citrate Of (09/06/20 20:15) Bisacodyl Suppository (Dulcolax Supposit (09/06/20 20:45) Medications Given in ED Current Medications Medications Dose Ordered Sig/Ghulam Route Start Time Stop Time Status Last Admin Dose Admin Bisacodyl 10 mg ONCE ONCE WY 09/06/20 20:15 09/06/20 20:17 DC 09/06/20 20:38 10 MG Bisacodyl 10 mg ONCE ONCE WY 09/06/20 20:45 09/06/20 20:42 DC 09/06/20 20:38 10 MG Lidocaine HCl 10 ml ONCE ONCE TOP 09/06/20 20:15 09/06/20 20:17 DC 09/06/20 20:38 10 ML Magnesium Citrate 300 ml ONCE ONCE PO 09/06/20 20:15 09/06/20 20:17 DC 09/06/20 20:38 300 ML Sodium Biphosphate/ Sodium Phosphate 1 ea ONCE ONCE WY 09/06/20 20:15 09/06/20 20:17 DC 09/06/20 20:38 1 EA Vital Signs/I&O 09/06/20 19:34 Temp 36.5 Pulse 93 Resp 16 B/P (MAP) 154/83 (106) O2 Delivery Room Air Diagnostic Imaging Comments ABDOMEN XRAYS--PER RADIOLOGIST REPORT AT 210 FINDINGS: Lung volumes are normal. No focal consolidation is seen. There is no pleural effusion or pneumothorax. The cardiac silhouette is normal in size. The bowel loops are nondistended. No large collection of free air is seen. There is marked stool at the rectum. There are degenerative changes in the spine. Cholecystectomy clips are noted. IMPRESSION: 1. Marked stool at the rectum concerning for impaction, otherwise stool burden is low with no obstruction seen. 2. No acute pulmonary abnormality. No free air is seen. Reviewed: Reviewed by Me Departure Impression Primary Impression: Constipation Additional Impression: Fecal impaction in rectum Disposition: HOME, SELF-CARE Condition: Stable Departure-Patient Inst. Referrals: MISSY RING MD (PCP/Family) Primary Care Physician Patient Instructions: Fecal Impaction (DC), Constipation, Adult ED Add. Discharge Instructions: INCREASE WATER AND FIBER INTAKE--FRESH FRUITS AND VEGETABLES DRINK ONLY CLEAR LIQUIDS ( WATER, BROTH, JELLO, GATORADE) AND DO NOT EAT ANY FOOD UNTIL YOU HAVE HAD A BOWEL MOVEMENT AND CLEARED YOUR BOWELS TAKE MIRALAX EVERY DAY TO PREVENT CONSTIPATION USE DULCOLAX SUPPOSITORIES AND FLEET'S ENEMAS UNTIL STOOLS ARE CLEAR, AND MAY NEED TO MANUALLY DIS-IMPACT STOOL USE OVER THE COUNTER HEMORRHOID CREAM FOR RECTAL PAIN FOLLOW UP WITH DR. RING ON TUESDAY IF NO BETTER FARNAZ ROSE DO Sep 06, 2020 19:40
[2020-09-06] MEDS ORDERED: MAGNESIUM CITRATE 300 ML BTL PO ONE (20:15)
[2020-09-06] MEDS ORDERED: LIDOCAINE UROJET 2% GEL 10 ML PKG TOP ONE (20:15)
[2020-09-06] MEDS ORDERED: FLEET ENEMA ADULT 1 EA BTL PR ONE (20:15)
[2020-09-06] MEDS ORDERED: BISACODYL 10 MG SUPP (DULCOLAX) PR ONE ×2 (20:15→20:45)
--- NOTE | 2020-09-06 20:29 | Diagnostic Imaging Report ---
HISTORY: Constipation. TECHNIQUE: Frontal view of the chest. Upright and supine frontal views of the abdomen. COMPARISON: Chest x-ray from 06/22/2019. FINDINGS: Lung volumes are normal. No focal consolidation is seen. There is no pleural effusion or pneumothorax. The cardiac silhouette is normal in size. The bowel loops are nondistended. No large collection of free air is seen. There is marked stool at the rectum. There are degenerative changes in the spine. Cholecystectomy clips are noted. IMPRESSION: 1. Marked stool at the rectum concerning for impaction, otherwise stool burden is low with no obstruction seen. 2. No acute pulmonary abnormality. No free air is seen. Dictated by: Dictated on workstation # [id number]
== END 2020-09-06 20:42 | disposition home or self-care (01) ==
LOC: EDUNIT# 19:34 → ER 19:36
DX: K56.41 Fecal impaction (principal); E66.9 Obesity, unspecified; Z68.42 Body mass index [BMI] 45.0-49.9, adult; Z88.5 Allergy status to narcotic agent; Z79.52 Long term (current) use of systemic steroids
CPT/HCPCS: 74022

== ENCOUNTER 2021-02-27 10:34 | Outpatient (CLI) | payer MEDICARE | END 2021-02-27 10:50 | LOC: SLEEP 10:34 | PROVIDERS: ATTEND Otolaryngology Otolaryngology/Facial Plastic Surgery | DX: G47.33 Obstructive sleep apnea (adult) (pediatric) (principal) | CPT/HCPCS: G0399 ==

== ENCOUNTER 2021-04-22 12:58 | Outpatient (CLI) | payer MEDICARE ==
[~2021-04-22] VITALS: Ht 160 cm; Wt 116.6 kg
[2021-04-22] MEDS ORDERED: MULT-974 PO (13:27)
[2021-04-22] MEDS ORDERED: LEVO137C4 PO (13:27)
[2021-04-22] MEDS ORDERED: OMEG-160 PO (13:27)
[2021-04-22] MEDS ORDERED: OLME40TA18 PO (13:27)
[2021-04-22] MEDS ORDERED: METO50TA7 PO (13:27)
[2021-04-22] MEDS ORDERED: ESCI20TA39 PO (13:27)
== END 2021-04-22 14:53 ==
LOC: PREOP 12:58
PROVIDERS: ATTEND Surgery
DX: Z01.818 Encounter for other preprocedural examination (principal)

== ENCOUNTER → 2021-04-30 | Outpatient (CLI) | payer MEDICARE ==
[~2021-04-30] MED LIST changes: +LEVO137C4 PO; +METO50TA7 PO; +MULT-974 PO; +OLME40TA18 PO; +OMEG-160 PO
--- NOTE | 2021-04-30 08:58 | Diagnostic Imaging Report ---
INDICATION: Routine screening. COMPARISON is made with prior mammograms from 04/29/2020 and 04/27/2019. 2-D and 3-D bilateral screening mammography was performed with CAD. Both breasts are heterogeneously dense, limiting the sensitivity of mammography. There are scattered benign calcifications in both breasts. No mass or malignant-appearing microcalcifications are seen. Axillae are unremarkable. IMPRESSION: BI-RADS Category 2 No mammographic features suspicious for malignancy are identified. ACR BI-RADS Category 2: Benign findings. Result letter will be mailed to the patient. Note: At least 10% of breast cancer is not imaged by mammography. Dictated by: Dictated on workstation # [id number]
== END ==
LOC: RAD 07:30
PROVIDERS: ATTEND Family Medicine
DX: Z12.31 Encounter for screening mammogram for malignant neoplasm of breast (principal)
CPT/HCPCS: 77063; 77067

== ENCOUNTER 2021-05-05 08:48 | Day surgery (SDC) | payer MEDICARE ==
[2021-05-05] VITALS (7 sets, daily range): BP systolic 109–154; BP diastolic 59–95
[~2021-05-05] VITALS: Ht 160 cm; Wt 116.6 kg
[2021-05-05] MEDS ORDERED: LACTATED RINGERS 1,000 ML IV STA (08:49)
[2021-05-05] MEDS ORDERED: proPOfol 200 MG/20 ML (DIPRIVAN) VIAL IV ONE ×2 (09:37)
--- NOTE | 2021-05-05 10:17 | Progress Note-Pre Operative ---
Pre-Operative Progress Note H&P Reviewed The H&P was reviewed, patient examined and no changes noted. Date Seen by Provider: May 05, 2021 Time Seen by Provider: 09:17 Date H&P Reviewed: May 05, 2021 Time H&P Reviewed: :17 Pre-Operative Diagnosis: blood in stool, family hx colon ca VIVIANA LANCE DO May 05, 2021 10:17
--- NOTE | 2021-05-05 10:21 | Progress Note-Post Operative ---
Post-Operative Progess Note Surgeon (s)/Dental Tech (s) Surgeon VIVIANA LANCE DO Dental Tech: na Pre-Operative Diagnosis blood in stool, family hx colon ca Post-Operative Diagnosis diverticulosis, mucosal change ascending colon and anorectal area, ascending polyp Procedure & Operative Findings Date of Procedure 05/05/21 Procedure Performed/Findings colonoscopy with cold bx ascending colon and anorectal mucosa, and hot bx polypectomy ascending colon polyp Anesthesia Type per mda Estimated Blood Loss Estimated blood loss (mL): scant Specimens/Packing Specimens Removed colon polyp, ascending and anorectal bx VIVIANA LANCE DO May 05, 2021 10:21
--- NOTE | 2021-05-05 14:28 | Anesthesia-General Post-Op ---
MAC Patient Condition Mental Status/LOC: Same as Preop Cardiovascular: Satisfactory Nausea/Vomiting: Absent Respiratory: Satisfactory Pain: Controlled Complications: Absent Post Op Complications Complications None Follow Up Care/Instructions Patient Instructions None needed. Anesthesiology Discharge Order Discharge Order Patient was seen after the procedure and she was doing well, no complaints, stable vital signs, no apparent adverse anesthesia problems. LISA JUAN DO May 05, 2021 14:28
--- NOTE | 2021-05-05 16:54 | OPERATIVE REPORT ---
DATE OF SERVICE: 05/05/2021 PREOPERATIVE DIAGNOSES: Blood in stool and family history of colon cancer. POSTOPERATIVE DIAGNOSES: Diverticulosis, mucosal change of the ascending colon and the anorectal area and an ascending colon polyp. PROCEDURES PERFORMED: Colonoscopy with cold biopsy of the ascending colon and cold biopsy of the anorectal mucosa and hot biopsy polypectomy of the ascending colon polyps. SURGEON: Viviana Giordano DO ANESTHESIA: Per MDA. ESTIMATED BLOOD LOSS: Scant. COMPLICATIONS: None. INDICATIONS FOR PROCEDURE: The patient is a 70-year-old female with some blood in her stools. She understands the risks and benefits of the procedure and wished to proceed with the procedure. Consent was signed in the chart. DESCRIPTION OF PROCEDURE: The patient was taken to the endoscopy suite and placed in the left lateral recumbent position. Timeout was performed. Digital rectal exam was performed and some hemorrhoidal tissue was present. No polyps, masses or ulcerations. Scope was inserted in the rectum and advanced all the way to the cecum with minimal difficulty. Prep was adequate. Scope was then slowly retracted back. No polyps, masses or ulcerations in the cecum. In the ascending colon, there was some bleeding, very, very minimal, I think secondary to distention of the colon. A biopsy of the ascending colon was obtained in this area. Scope was then continuously slowly retracted back. Small polyp was present in the ascending colon, which hot biopsy polypectomy was performed. Scope was then continuously slowly retracted back. No polyps, masses or ulcerations within the remainder of the ascending, transverse, descending and sigmoid colon. Throughout the colon was diverticulosis. Once in the rectum, the scope was retroflexed noting slight anorectal mucosal change. Cold biopsies were obtained as well. Scope was slowly retracted until completely removed, noting no other pathology. The patient tolerated the procedure well without any complications. She was taken to the recovery room in stable condition. RECOMMENDATIONS: The patient will follow up on pathology. Further recommendations pending that. We will need repeat colonoscopy in five years if benefits outweigh the risk. If any issues before that be seen at that time. I also recommended high fiber diet due to diverticulosis. Job ID: [id number] DocumentID: [id number] Dictated Date: 05/05/2021 10:23:58 Oss Architect Date: 05/05/2021 16:53:50 Dictated By: VIVIANA GIORDANO DO
== END 2021-05-05 10:58 | disposition home or self-care (01) ==
LOC: ENDO 08:48
PROVIDERS: ATTEND Surgery
DX: K57.90 Diverticulosis of intestine, part unspecified, without perforation or abscess without bleeding (principal); D12.2 Benign neoplasm of ascending colon; K63.89 Other specified diseases of intestine; I10 Essential (primary) hypertension; K62.89 Other specified diseases of anus and rectum; E03.9 Hypothyroidism, unspecified; E78.5 Hyperlipidemia, unspecified; Z88.5 Allergy status to narcotic agent; Z79.899 Other long term (current) drug therapy; Z79.890 Hormone replacement therapy; E66.01 Morbid (severe) obesity due to excess calories; Z68.42 Body mass index [BMI] 45.0-49.9, adult; Z80.0 Family history of malignant neoplasm of digestive organs

== ENCOUNTER → 2021-12-08 | Outpatient (CLI) | payer MEDICARE ==
--- NOTE | 2021-12-08 14:58 | Diagnostic Imaging Report ---
Indication: Left knee pain. Time of Exam: 2:18 PM Three views of the left knee demonstrate postoperative changes of total knee arthroplasty. Prosthetic elements are in good position. No fracture or loosening is identified. There is no effusion. IMPRESSION: Satisfactory postop appearance to the left knee. Dictated by: Dictated on workstation # [id number]
--- NOTE | 2021-12-08 15:00 | Diagnostic Imaging Report ---
Indication: Back pain. Time of Exam: 2:17 PM Three views of the lumbar spine were obtained. Curvature and alignment is normal. Vertebral body heights are well-maintained. No acute compression fracture is seen. There is multilevel degenerative disc disease with variable disc space narrowing and marginal spurring. There is lower lumbar facet arthropathy. IMPRESSION: Lumbar spondylosis. No acute bony abnormality is detected. Dictated by: Dictated on workstation # [id number]
== END ==
LOC: RAD 13:55
PROVIDERS: ATTEND Nurse Practitioner Family
DX: M47.816 Spondylosis without myelopathy or radiculopathy, lumbar region (principal); M25.562 Pain in left knee
CPT/HCPCS: 72100; 73562

== ENCOUNTER → 2022-04-15 | Outpatient (CLI) | payer MEDICARE | LOC: CARD 13:30 | PROVIDERS: ATTEND Internal Medicine Cardiovascular Disease | DX: R06.09 Other forms of dyspnea (principal) | CPT/HCPCS: 93306 ==

== ENCOUNTER → 2022-04-20 | Outpatient (CLI) | payer MEDICARE ==
[~2022-04-20] MED LIST changes: +CATHETER FLUSH 10 ML SYR IVP PRN; +REGADENOSON 0.4 MG/5 ML SYR (LEXISCAN) IV ONE
[2022-04-20 08:52] VITALS: BP 188/106
--- NOTE | 2022-04-22 13:23 | STRESS TEST ---
DATE OF SERVICE: 04/20/2022 RESTING AND POST REGADENOSON TECHNETIUM-99M TETROFOSMIN SPECT CT IMAGING ORDERING PHYSICIAN: Paulette Ardon APRN PRIMARY PHYSICIAN: Dr. Dolan. CLINICAL DIAGNOSIS: Chest discomfort. Baseline images were carried out after injection of 10.96 mCi of technetium-99m Tetrofosmin. This was followed by 0.4 mg regadenoson and 28.3 mCi of technetium-99m Tetrofosmin for stress imaging. The electrocardiogram showed sinus rhythm at baseline. It did not change significantly with the regadenoson infusion. The patient noted some shortness of breath following regadenoson infusion, which resolved in a few minutes. Review of images at rest and following stress does not indicate any distinct perfusion defects consistent with significant myocardial ischemia or infarction. Gated images show normal global left ventricular systolic function with normal regional wall motion. Left ventricular ejection fraction is calculated to be 70%. CONCLUSIONS: 1. No evidence of any significant myocardial ischemia or infarction on this study. 2. Normal regional wall motion. 3. Normal global left ventricular systolic function with a calculated ejection fraction of 70%. Job ID: [id number] DocumentID: [id number] Dictated Date: 04/22/2022 09:17:05 Ghost Writer Date: 04/22/2022 13:22:18 Dictated By: GEOVANNI DUQUE MD, MA, FACP, FACC,
== END ==
LOC: CARD 07:30
PROVIDERS: ATTEND Nurse Practitioner Family
DX: R07.89 Other chest pain (principal)
CPT/HCPCS: 78452; 93017; A9502

== ENCOUNTER → 2022-05-03 | Outpatient (CLI) | payer MEDICARE ==
[~2022-05-03] MED LIST changes: -CATHETER FLUSH 10 ML SYR IVP PRN; -REGADENOSON 0.4 MG/5 ML SYR (LEXISCAN) IV ONE
--- NOTE | 2022-05-04 13:26 | Diagnostic Imaging Report ---
Indication: Routine screening. Comparison is made with prior mammogram 04/30/2021 and 04/29/2020. 2-D and 3-D bilateral screening mammography was performed with CAD. CAD is utilized. The current study was also evaluated with a Computer Aided Detection (CAD) system. Scattered fibroglandular densities are identified bilaterally. There are benign calcifications scattered throughout both breasts. No mass or malignant appearing microcalcifications are seen. Axillae are unremarkable. IMPRESSION: BI-RADS Category 2 No mammographic features suspicious for malignancy are identified. ACR BI-RADS Category 2: Benign findings. Result letter will be mailed to the patient. Note: At least 10% of breast cancer is not imaged by mammography. Dictated by: Dictated on workstation # [id number]
== END ==
LOC: RAD 14:30
PROVIDERS: ATTEND Nurse Practitioner Family
DX: Z12.31 Encounter for screening mammogram for malignant neoplasm of breast (principal)
CPT/HCPCS: 77063; 77067

== ENCOUNTER → 2022-07-01 | Outpatient (CLI) | payer MEDICARE ==
[~2022-07-01] MED LIST changes: +ALBU8.5H6 IH; +BARIUM for suspension 96% w/w (Vanilla Silq Medium Density) PO ONE; +BARIUM for suspension 98% w/w (Vanilla Silq High Density) PO ONE; -RT-ALBUINH IH
--- NOTE | 2022-07-01 09:38 | Diagnostic Imaging Report ---
Indication: Pregastric sleeve workup. Patient ingested effervescent crystals as well as thin and thick barium and imaging of the esophagus, stomach and proximal small bowel was performed. A total of 0.6 minutes of fluoroscopic time was utilized. Preliminary radiograph of the abdomen is unremarkable. The esophagus has a smooth contour. No mass or stricture is identified. There is a very small sliding-type hiatal hernia. There was mild gastroesophageal reflux demonstrated. Stomach has normal configuration. Duodenal bulb is without deformity. The visualized proximal small bowel loops are unremarkable. IMPRESSION: Small sliding-type hiatal hernia and mild gastroesophageal reflux. The study is otherwise unremarkable. Dictated by: Dictated on workstation # [id number]
== END ==
LOC: RAD 09:15
PROVIDERS: ATTEND Surgery
DX: K21.9 Gastro-esophageal reflux disease without esophagitis (principal); K44.9 Diaphragmatic hernia without obstruction or gangrene; E66.01 Morbid (severe) obesity due to excess calories
CPT/HCPCS: 74246

== ENCOUNTER 2022-07-29 11:15 | Outpatient (CLI) | payer MEDICARE ==
[~2022-07-29] VITALS: Ht 160 cm; Wt 110.9 kg
[~2022-07-29 11:15] MED LIST changes: -BARIUM for suspension 96% w/w (Vanilla Silq Medium Density) PO ONE; -BARIUM for suspension 98% w/w (Vanilla Silq High Density) PO ONE
== END 2022-08-02 09:58 | disposition home or self-care (01) ==
LOC: PREOP 11:15
PROVIDERS: ATTEND Surgery
DX: Z01.818 Encounter for other preprocedural examination (principal)

== ENCOUNTER 2022-08-05 09:00 | Inpatient (IN) | payer MEDICARE ==
[2022-08-05] VITALS (11 sets, daily range): BP systolic 124–166; BP diastolic 54–98
[~2022-08-05] VITALS: Ht 160 cm; Wt 110.9 kg
[~2022-08-05 09:00] MED LIST changes: +metroNIDAZOLE 500MG/100ML IVPB 100 ML IV SCH
--- NOTE | 2022-08-05 12:48 | HISTORY AND PHYSICAL ---
DATE OF SERVICE: 08/05/2022 The patient is a 71-year-old female with morbid obesity and medical comorbidities related to obesity including obstructive sleep apnea, hypercholesterolemia, depression, hypertension, degenerative joint disease of the knees and chronic kidney disease. She is interested in the laparoscopic gastric sleeve resection and meets the medical criteria for bariatric surgery. She reports that she gained the majority of her adult weight over the past 20 years. She reports she has tried diet such as Medifast, Premier diet, Nutrisystem, Weight Watchers, Seble Michael and ketogenic diet. She reports that she did have some success with the Medifast diet; however, after stopping this diet she did regain her weight back. She reports that she has tried exercises in the past such as walking on a treadmill as well as a stationary bike, but reports no success. She reports that she did try some physician monitored dieting with medications in the past; however, reports that she developed a reaction to one of the medications and had to stop these. MEDICAL HISTORY: Obstructive sleep apnea, hypercholesterolemia, hypertension, hypothyroidism, chronic kidney disease, degenerative joint disease of the knees. SURGICAL HISTORY: Bilateral knee arthroplasty, laparoscopic cholecystectomy and appendectomy in 1989, section, partial hysterectomy, left ulnar nerve transposition, left bunionectomy. ALLERGIES: CODEINE. MEDICATIONS: Fiber, vitamin D, multivitamin, oxymetazoline, Lexapro 20 mg daily, atorvastatin 10 mg daily, levothyroxine 135 mcg daily, olmesartan, medoxomil 40 mg daily. SOCIAL HISTORY: Negative for tobacco smoker, for alcohol. FAMILY HISTORY: Father, stroke. Son, lung cancer. Mother, hypertension. Paternal grandfather, colon cancer. Maternal grandfather, myocardial infarction. VITAL SIGNS: Blood pressure is 134/80. Current weight is 251.5 pounds at 5 feet 3 inches. REVIEW OF SYSTEMS: As well-nourished female in no acute distress. She is not experiencing any shortness of breath or difficulty breathing. No chest pain, palpitations or diaphoresis. No nausea, vomiting or abdominal pain. No diarrhea or constipation. No red blood per rectum. No dark tarry stools. No fever or chills. No recent inadvertent weight loss. All other review of systems negative. PHYSICAL EXAMINATION: CHEST: Clear. Good breath sounds bilaterally. HEART: Regular, no murmurs. EXTREMITIES: No lower extremity edema. Negative Homans sign. HEENT: No scleral icterus. No cervical lymphadenopathy. ABDOMEN: Soft, nontender, nondistended. SKIN: Warm, dry and pink. NEURO: Awake, alert and oriented x3. ASSESSMENT AND PLAN: A 71-year-old female with morbid obesity and medical comorbidities related to obesity including obstructive sleep apnea, hypercholesterolemia, depression, hypertension, degenerative joint disease of bilateral knees and chronic kidney disease. She is interested in the laparoscopic gastric sleeve resection and does meet the medical criteria for bariatric surgery. At this time, she has completed all the necessary testing evaluations including upper GI contrast study, nutrition and psychology consult and has received clearance from her primary care physician, roofing supervisor and chemist assistant. The risks and benefits of the procedure as well as the procedure and home care instructions were explained to the patient. It was also discussed with her in depth about preoperative as well as postoperative diet and exercise. She verbalized understanding of instructions and agrees to proceed as planned. At this time, we will proceed with scheduling her for the laparoscopic gastric sleeve resection. Job ID: [id number] DocumentID: [id number] Dictated Date: 08/05/2022 10:27:43 Risk Assessment Consultant Date: 08/05/2022 12:46:00 Dictated By: JULISSA WILSON
[2022-08-05] MEDS: LACTATED RINGERS 1,000 ML IV PRN ×2 (13:54→17:10)
[2022-08-05] MEDS ORDERED: LACTATED RINGERS 1,000 ML IV PRN (14:00)
[2022-08-05] MEDS ORDERED: ceFAZolin INJECTION 2,000 MG in NS (IVPB) 50 ML IV ONE (14:00)
[2022-08-05] MEDS ORDERED: BUP/EPI 0.5% 1:200,000 (SENSORCAINE) 30 ML VIAL ONE (14:07)
[2022-08-05] MEDS ORDERED: FAMOTIDINE 20MG/2ML IV (PEPCID) IV ONE (15:00)
[2022-08-05] MEDS ORDERED: ONDANSETRON 4 MG/2 ML (SDV) Z0FRAN IV ONE (15:00)
[2022-08-05] MEDS ORDERED: ONDANSETRON 4 MG/2 ML (SDV) Z0FRAN ONE ×3 (15:03→19:09)
[2022-08-05] MEDS ORDERED: LIDOCAINE PF 2% 5 ML (XYLOCAINE) VIAL ONE (15:03)
[2022-08-05] MEDS ORDERED: proPOfol 200 MG/20 ML (DIPRIVAN) VIAL IV ONE (15:03)
[2022-08-05] MEDS ORDERED: ROCURONIUM 50 MG/5 ML (ZEMURON) VIAL IV ONE (15:03)
[2022-08-05] MEDS ORDERED: NEOSTIGMINE 3 MG/3 ML VIAL ONE (15:03)
[2022-08-05] MEDS ORDERED: GLYCOPYRROLATE 0.2 MG/ML (ROBINUL) 2 ML VIAL ONE (15:03)
[2022-08-05] MEDS ORDERED: fentaNYL INJ 100 MCG/2 ML AMP ONE ×2 (15:03→18:51)
[2022-08-05] MEDS ORDERED: FAMOTIDINE 20MG/2ML IV (PEPCID) ONE (15:23)
--- NOTE | 2022-08-05 16:49 | Progress Note-Pre Operative ---
Pre-Operative Progress Note Date of Available H&P: Aug 05, 2022 Date H&P Reviewed: Aug 05, 2022 Time H&P Reviewed: 16:00 History & Physical: No changes noted Pre-Operative Diagnosis: morbid obesity, DANIELA, HTN AJIT GONZÁLES MD Aug 05, 2022 16:49
[2022-08-05] MEDS ORDERED: diphenhydrAMINE 50 MG/ML INJ (BENADRYL) IVP PRN (17:00)
[2022-08-05] MEDS ORDERED: NALOXONE 0.4 MG/ML 1 ML (NARCAN) VIAL IV PRN (17:00)
[2022-08-05] MEDS ORDERED: ONDANSETRON 4 MG/2 ML (SDV) Z0FRAN IV PRN (17:00)
[2022-08-05] MEDS ORDERED: metroNIDAZOLE 500MG/100ML IVPB 100 ML IV SCH (17:00)
[2022-08-05] MEDS ORDERED: fentaNYL INJ 1,000 MCG in NS (IVPB) 80 ML IV PRN (17:00)
[2022-08-05] MEDS ORDERED: METOCLOPRAMIDE INJ 10 MG/2 ML (REGLAN) IV PRN (17:00)
[2022-08-05] MEDS ORDERED: diphenhydrAMINE 50 MG/ML INJ (BENADRYL) IV PRN (17:00)
[2022-08-05] MEDS ORDERED: NS IV 1000 ML 1,000 ML IV SCH (17:00)
[2022-08-05] MEDS ORDERED: BUP/EPI 0.5% 1:200,000 (SENSORCAINE) 30 ML VIAL INJ ONE (17:34)
[2022-08-05] MEDS ORDERED: SEVOFLURANE (ULTANE) 15 ML INHAL SOLN ONE (17:44)
[2022-08-05] MEDS ORDERED: PHENYLEPHRINE 100 MCG/ML 10 ML (ANESTHESIA) SYR ONE (18:00)
[2022-08-05] MEDS: ONDANSETRON 4 MG/2 ML (SDV) Z0FRAN IVP SCH (18:00)
[2022-08-05] MEDS: METOCLOPRAMIDE INJ 10 MG/2 ML (REGLAN) IVP SCH (18:00)
[2022-08-05] MEDS ORDERED: SUGAMMADEX 500 MG/5 ML VIAL (BRIDION) IV ONE (18:19)
--- NOTE | 2022-08-05 18:34 | Progress Note-Post Operative ---
Post-Operative Progess Note Surgeon (s)/Plasticator (s) Surgeon AJIT GONZÁLES MD Plasticator: rei clemons FLYING II INSTRUCTOR Pre-Operative Diagnosis morbid obesity, DANIELA, HTN Post-Operative Diagnosis same Procedure & Operative Findings Date of Procedure 08/05/22 Procedure Performed/Findings laparoscopic gastric sleeve resection. Anesthesia Type get Estimated Blood Loss Estimated blood loss (mL): minimal Specimens/Packing Specimens Removed stomach AJIT GONZÁLES MD Aug 05, 2022 18:34
[2022-08-05] MEDS ORDERED: ONDANSETRON 4 MG/2 ML (SDV) Z0FRAN IVP PRN (19:00)
[2022-08-05] MEDS ORDERED: fentaNYL INJ 100 MCG/2 ML AMP IVP ONE (19:00)
[2022-08-05] MEDS: 1/2 NS W/KCL 20 MEQ/L 1,000 ML IV SCH (21:00)
[2022-08-05] MEDS ORDERED: ceFAZolin INJECTION 2,000 MG in NS (IVPB) 50 ML IV SCH (22:00)
[2022-08-05] MEDS ORDERED: RT-ALBUTEROL SULF 2.5 MG/3 ML PRE-MIX VIAL INH SCH (22:00)
[2022-08-05] MEDS: RT-ALBUTEROL SULF 2.5 MG/3 ML PRE-MIX VIAL INH SCH (23:39)
[2022-08-05] MEDS: fentaNYL INJ 100 MCG/2 ML AMP IVP PRN (23:51)
[2022-08-05] MEDS: ceFAZolin INJECTION 2,000 MG in NS (IVPB) 50 ML IV SCH (23:53)
[2022-08-05] MEDS: ENOXAPARIN 40 MG/0.4 ML (LOVENOX) SYR SC SCH (23:54)
[2022-08-06] MEDS: 1/2 NS W/KCL 20 MEQ/L 1,000 ML IV SCH ×3 (01:54→12:49)
[2022-08-06] MEDS: fentaNYL INJ 100 MCG/2 ML AMP IVP PRN ×3 (02:20→13:49)
--- NOTE | 2022-08-06 02:21 | OPERATIVE REPORT ---
DATE OF SERVICE: 08/05/2022 ATTENDING PRIMARY CARE PHYSICIAN: Tracy Dolan MD PREOPERATIVE DIAGNOSES: Morbid obesity, sleep apnea, hypertension. POSTOPERATIVE DIAGNOSES: Morbid obesity, sleep apnea, hypertension. PROCEDURE: Laparoscopic gastric sleeve resection. SURGEON: Alvarez Gonzáles MD [employer] CONSULTANT: [employer] APRN ANESTHESIA: General endotracheal. ESTIMATED BLOOD LOSS: Minimal. FINDINGS: Mild hepatomegaly, no hiatal hernia. DISPOSITION: The patient tolerated the procedure well. INDICATIONS: The patient is a 71-year-old female who is in her surgical weight loss program for the laparoscopic gastric sleeve resection and meets the medical criteria for bariatric surgery. She gained the majority of her adult weight over the past 20 years and she has tried a number of diet and exercise attempts with no success. She has tried Medifast, Premier diet, Nutrisystem, Weight Watchers, Seble Michael and ketogenic diet and has had some successful weight loss; however, this was transient. She reports that she has tried exercise regimens including walking treadmill and stationary bike, but no success. She also has tried physician monitored dieting with medications; however, she did not do well with the medications and developed some form of reaction and had to discontinue them. Her medical comorbidities related to her obesity include sleep apnea, hypercholesterolemia, hypertension, depression, degenerative joint disease and chronic kidney disease. DESCRIPTION OF PROCEDURE: The patient was brought to the operating room, laid supine on the table. After adequate IV pain and sedative medications and general endotracheal intubation, the abdomen was prepped and draped in standard surgical fashion. A 0.5% Marcaine with epinephrine was then used to anesthetize the overlying skin on the left upper abdominal quadrant and a transverse skin incision was made using a #15 blade. An 0 silk suture was applied to the medial aspect of the incision for retraction and the Veress needle inserted with a low opening pressure of 0 mmHg. The abdomen was then insufflated to 15 mmHg pressure. The Veress needle was removed and a 5 mm XL trocar was placed followed by 5 mm 45-degree angle laparoscope visualized the peritoneal cavity. A 4-quadrant abdominal exploration was performed. There was mild hepatomegaly. No hiatal hernia identified. Under direct visualization, we then proceeded to place a mid abdominal left to midline 10 mm port. After the skin and peritoneal lining were anesthetized using 0.5% Marcaine with epinephrine and a transverse skin incision made using a #15 blade. In a similar manner, a mid abdominal right of midline 15 mm port was placed followed by a right upper abdominal quadrant 5 mm port. The epigastric region was then anesthetized and a transverse skin incision made using 11 blade and a tract created through the abdominal wall layers using a trocar to a 5 mm port. Through this opening, a medium-sized James liver retractor was placed and the left lobe of the liver retracted anteriorly and superiorly. The patient was then placed in steep reverse Trendelenburg position. We then measured 6 cm from the pylorus along the greater curvature and marked this area with a marking pen. The gastrocolic ligament was then opened in this region entering the lesser sac. We then proceeded inferiorly until we were approximately 2 cm below our markings. We then proceeded cephalad taking down the short gastric vessels as well as dissecting out the entire angle of His, connective tissue fibers as well as the posterior stomach until the left eula of the diaphragm identified. Good hemostasis was observed. A 36-Salvadorean ViSiGi was then placed under direct visualization and directed into the pylorus. Using this as a staple line guide, we then first proceeded with a TANISHA 45 mm polyglycolic acid black load approximately 2 cm below our marking. We then proceeded with a 60 mm black load followed by two 60-mm purple loads leaving 2 cm at the gastroesophageal junction completing our gastric sleeve resection. Good hemostasis was observed and the stomach was removed through the 15 mm port site. A leak test was then performed. A 35 mmHg air with no leak identified. Staple line corners were then clipped with 5 mm clips and fibrin glue placed onto the staple line followed by placement of the omentum over the staple line. The liver retractor was then removed and the fascia and peritoneum to the 10 and 15 mm port sites were then closed under direct visualization using a Casey-Shad device and an 0 Vicryl suture. The abdomen was then desufflated and the remaining ports were removed. All skin incisions were closed using 4-0 Monocryl running subcuticular sutures. Wounds were then cleaned and covered with Dermabond. The patient tolerated the procedure well. We will proceed with pain control with a TRACK HOE OPERATOR pump. We also proceed with DVT prophylaxis with early ambulation calf, SCDs as well as Lovenox injections. She may have ice chips tonight; however, we will start phase 1 clear liquid diet initially starting with 30 mL of clear liquids every half hour and then double this to 60 mL every half hour. When she is able to tolerate liquids at this rate, had good pain control with oral pain medication and is ambulating well, we will discharge her home where she will be instructed to continue with the phase 1 clear liquid diet for the next 2 weeks as well as to avoid any heavy lifting or exertion for the same timeframe. Job ID: [id number] DocumentID: [id number] Dictated Date: 08/05/2022 18:42:39 Material Cutter Date: 08/06/2022 02:20:00 Dictated By: ALVAREZ GONZÁLES MD
[2022-08-06 03:05] VITALS: BP 114/56
[2022-08-06 06:04] LABS: HEMATOCRIT 40 % (35-52); HEMOGLOBIN 13.1 g/dL (11.5-16.0); MEAN CORPUSCULAR HEMOGLOBIN 30 pg (25-34); MEAN CORPUSCULAR HGB CONC 33 g/dL (32-36); MEAN CORPUSCULAR VOLUME 92 fL (80-99); MEAN PLATELET VOLUME 9.6 fL (9.0-12.2); PLATELET COUNT 167 10^3/uL (130-400); WHITE BLOOD COUNT 7.6 10^3/uL (4.3-11.0)
[2022-08-06 06:22] LABS: POTASSIUM 4.7 MMOL/L (3.6-5.0)
[2022-08-06 06:24] LABS: CALCIUM 9.1 MG/DL (8.5-10.1)
[2022-08-06 06:28] LABS: CREATININE SERUM 1.03 MG/DL (0.60-1.30)
[2022-08-06] MEDS: METOCLOPRAMIDE INJ 10 MG/2 ML (REGLAN) IVP SCH ×3 (06:37→12:08)
[2022-08-06] MEDS: ONDANSETRON 4 MG/2 ML (SDV) Z0FRAN IVP SCH ×3 (06:37→12:08)
[2022-08-06] MEDS: RT-ALBUTEROL SULF 2.5 MG/3 ML PRE-MIX VIAL INH SCH ×2 (07:10→14:38)
[2022-08-06 08:00] VITALS: BP 121/56
[2022-08-06] MEDS ORDERED: metroNIDAZOLE 500MG/100ML IVPB 100 ML IV SCH (08:00)
[2022-08-06] MEDS: ceFAZolin INJECTION 2,000 MG in NS (IVPB) 50 ML IV SCH (08:46)
[2022-08-06] MEDS: ENOXAPARIN 40 MG/0.4 ML (LOVENOX) SYR SC SCH (08:47)
[2022-08-06] MEDS ORDERED: SENNA W/DOCUSATE (SENOKOT S) TABLET PO SCH (09:00)
[2022-08-06] MEDS ORDERED: PANTOPRAZOLE 40 MG (PROTONIX) VIAL IV SCH (09:00)
[2022-08-06] MEDS ORDERED: PANTOPRAZOLE 40 MG (PROTONIX) TAB PO SCH (09:00)
--- NOTE | 2022-08-06 11:28 | Progress Note ---
Subjective Date Seen by a Provider: Aug 06, 2022 Time Seen by a Provider: 10:30 Subjective/Events-last exam doing well. pain controlled. tolerating clears. no fever/chills. no nausea vomiting. Objective Exam Vital Signs Date Time Temp Pulse Resp B/P (MAP) Pulse Ox O2 Delivery O2 Flow Rate FiO2 08/06/22 09:17 98 Nasal Cannula 2.00 08/06/22 08:00 98 Nasal Cannula 2.00 08/06/22 08:00 37.1 93 18 121/56 (77) 96 Nasal Cannula 2.00 08/06/22 07:17 98 Nasal Cannula 2.00 08/06/22 03:28 94 Nasal Cannula 2.00 08/06/22 03:05 37.1 97 16 114/56 (75) 97 Nasal Cannula 2.00 08/05/22 23:39 100 Nasal Cannula 2.00 08/05/22 23:33 36.7 92 16 138/71 (93) 100 Nasal Cannula 2.00 08/05/22 21:30 86 166/98 (120) 99 Nasal Cannula 2.00 08/05/22 20:58 100 Nasal Cannula 2.00 08/05/22 20:30 85 133/66 (88) 98 Nasal Cannula 200.00 08/05/22 20:12 37.2 80 20 132/64 (86) 98 Nasal Cannula 2.00 08/05/22 19:30 Room Air 08/05/22 19:30 36.1 18 138/57 (84) 96 Room Air 08/05/22 19:20 19 127/58 (81) 98 Room Air 08/05/22 19:15 OxyMask 2.00 08/05/22 19:10 20 144/63 (90) 99 OxyMask 2.00 08/05/22 19:00 18 133/54 (80) 100 OxyMask 4.00 08/05/22 18:55 OxyMask 4.00 08/05/22 18:52 16 132/61 (84) 100 OxyMask 6.00 08/05/22 18:42 36.1 16 124/67 (86) 99 OxyMask 8.00 08/05/22 18:42 OxyMask 8.00 08/05/22 14:20 98 Room Air 08/05/22 14:17 36.2 88 18 125/77 (93) 98 Room Air I & O 08/06/22 07:00 Intake Total 1950 ml Output Total 140 ml Balance 1810 ml Capillary Refill : General Appearance: No Apparent Distress HEENT: PERRL/EOMI Neck: Full Range of Motion Respiratory: Chest Non Tender, Lungs Clear, Normal Breath Sounds Cardiovascular: Regular Rate, Rhythm Gastrointestinal: normal bowel sounds, soft, tenderness Extremity: Normal Capillary Refill Neurologic/Psychiatric: Alert, Oriented x3 Skin: Normal Color Lymphatic: No Adenopathy Results Lab Laboratory Tests 08/06/22 05:41: White Blood Count 7.6, Red Blood Count 4.35, Hemoglobin 13.1, Hematocrit 40, Mean Corpuscular Volume 92, Mean Corpuscular Hemoglobin 30, Mean Corpuscular Hemoglobin Concent 33, Red Cell Distribution Width 12.5, Platelet Count 167, Mean Platelet Volume 9.6, Sodium Level 137, Potassium Level 4.7, Chloride Level 106, Carbon Dioxide Level 18L, Anion Gap 13, Blood Urea Nitrogen 16, Creatinine 1.03, Estimat Glomerular Filtration Rate 58, BUN/Creatinine Ratio 16, Glucose Level 135H, Calcium Level 9.1 Microbiology 08/05/22 MRSA Screen - Final, Complete MRSA not isolated Assessment/Plan Assessment/Plan Assess & Plan/Chief Complaint s/p gastric sleeve resection. ambulate. increase phase 1 clear liquid diet. ween O2. home soon. AJIT GONZÁLES MD Aug 06, 2022 11:27
[2022-08-06 11:35] VITALS: BP 125/59
[2022-08-06] MEDS ORDERED: ONDANSETRON 4 MG/2 ML (SDV) Z0FRAN IVP PRN (17:00)
[2022-08-06] MEDS ORDERED: METOCLOPRAMIDE INJ 10 MG/2 ML (REGLAN) IVP PRN (17:00)
== END 2022-08-06 15:35 | disposition home or self-care (01) | DRG 621 ==
LOC: 4TH 13:41 → SURG 13:42 → 4TH 20:01
PROVIDERS: ADMIT Surgery; ATTEND Surgery
PROC: 0DB64Z3 Excision of Stomach, Percutaneous Endoscopic Approach, Vertical (ICD-10-PCS; principal; 2022-08-05 16:53)
DX: E66.01 Morbid (severe) obesity due to excess calories (principal); G47.33 Obstructive sleep apnea (adult) (pediatric); I10 Essential (primary) hypertension; Z68.41 Body mass index [BMI] 40.0-44.9, adult; E78.00 Pure hypercholesterolemia, unspecified; F32.A Depression, unspecified; N18.9 Chronic kidney disease, unspecified; Z96.653 Presence of artificial knee joint, bilateral
CPT/HCPCS: 36415; 80048; 85027; 87081; 94640; 94760

== ENCOUNTER → 2023-05-05 | Outpatient (CLI) | payer MEDICARE ==
[~2023-05-05] MED LIST changes: -metroNIDAZOLE 500MG/100ML IVPB 100 ML IV SCH
--- NOTE | 2023-05-05 10:23 | Diagnostic Imaging Report ---
INDICATION: Routine screening. Comparison is made with prior mammograms 05/03/2022 and 04/30/2021. 2-D and 3-D bilateral screening mammography was performed with CAD. Both breasts are heterogeneously dense, limiting the sensitivity of mammography. The parenchymal pattern is stable. No mass or malignant-appearing microcalcifications are identified. Axillae are unremarkable. IMPRESSION: BI-RADS Category 1 No mammographic features suspicious for malignancy are identified. ACR BI-RADS Category 1: Negative. Result letter will be mailed to the patient. Note: At least 10% of breast cancer is not imaged by mammography. Dictated by: Dictated on workstation # [id number]
== END ==
LOC: RAD 07:38
PROVIDERS: ATTEND Family Medicine
DX: Z12.31 Encounter for screening mammogram for malignant neoplasm of breast (principal)
CPT/HCPCS: 77063; 77067